=== PATIENT | female | born 1975 | race Caucasian/White ===

== ENCOUNTER 2017-01-28 04:09 | Emergency (ER) | payer BC ==
[~2017-01-28] VITALS: Ht 165.1 cm; Wt 95.8 kg
[2017-01-28 04:14] VITALS: TEMP 36.8; Ht 165.1 cm; Wt 95.8 kg
[2017-01-28 04:41] LABS: BASO % 0.5 %; BASO ABS # 0.04 K/uL (0-0.2); COMPLETE YES; EOS % 2.1 %; HEMATOCRIT 34.6 % (37-47); IG% 0.2 %; LYMPH % 42.4 %; LYMPH ABS # 3.51 K/uL (1.2-3.4); MEAN CELL VOLUME 86.5 fL (80-100); MEAN CORPUSCULAR HEMOGLOBIN 28.8 pg (25-34); MEAN CORPUSCULAR HGB CONC 33.2 g/dl (32-36); MEAN PLATELET VOLUME 9.2 fL (7.4-10.4); MONO % 6.8 %; PLATELET COUNT 361 K/uL (130-400); WHITE BLOOD COUNT 8.27 K/uL (4.8-10.8)
[2017-01-28 05:00] LABS: BUN/CREATININE RATIO 27.7 (10-20); CALCIUM 8.1 mg/dl (8.5-10.1); CREATININE 0.62 mg/dl (0.60-1.20); POTASSIUM 3.6 mmol/L (3.5-5.1)
[2017-01-28 05:03] LABS: ALB/GLOB RATIO 0.9 (0.9-2)
[2017-01-28 05:06] VITALS: O2SAT 97
[2017-01-28 05:49] LABS: PREG INTERNAL NEGATIVE QC NEG CLEAR BACKGROUND; PREG INTERNAL POSITIVE QC POS CONTROL LINE
--- NOTE | 2017-01-28 06:08 | EMERGENCY ROOM VISIT NOTE ---
History First contact with patient: 04:19 Chief Complaint: LEG PAIN,LEG INJURY Stated Complaint: LEFT LEG PAIN/BURNING History of Present Illness The patient is a 41 year old female who presents to the Emergency Room with complaints of left calf pain and discomfort for the past few days described As aching, ranging in severity 6 out of 10 is worse with palpation and better with rest. It does not radiate. No history of DVT or PE. Patient does not smoke. No control and no recent travel. No family history of blood clots. Patient has had sciatica before but this feels different. Patient denies chest pain, dyspnea, numbness, tingling, fever, chills. No injury to the area. Patient has been doing a lot of walking. Review of Systems See HPI for pertinent positives & negatives. A total of 10 systems reviewed and were otherwise negative. Past Medical/Surgical History none Social History Smoking Status: Never Smoker Current/Historical Medications No Active Prescriptions or Reported Meds Physical Exam Vital Signs Date Time Temp Pulse Resp B/P (MAP) Pulse Ox O2 Delivery O2 Flow Rate FiO2 01/28/17 05:08 90 01/28/17 05:06 90 16 161/104 96 Room Air 01/28/17 05:06 97 Room Air 01/28/17 04:14 36.8 90 20 168/91 98 Room Air Physical Exam VITALS: Vitals are noted on the nurse's note and reviewed by myself. Vital signs hypertensive GENERAL: Pleasant female, in no acute distress, nondiaphoretic, well-developed well-nourished. SKIN: Capillary reflex less than 2 seconds. HEENT: Normocephalic. PERRLA. EOMI. Nares patent. Mucous membranes moist. Neck is supple without nuchal rigidity. HEART: Regular rate and rhythm without murmurs gallops or rubs. LUNGS: Clear to auscultation bilaterally without wheezes, rales or rhonchi. No retractions or accessory muscle use. ABDOMEN: Positive bowel sounds x 4. Normal tympanic percussion. Soft, nontender, without masses or organomegaly. Gonzalez sign negative. No guarding or rebound tenderness. MUSCULOSKELETAL: No gross musculoskeletal defects. No pedal edema. Left calf tenderness. NEURO: Patient was alert and oriented to person place and time. Normal sensation to light and sharp touch. No focal neurological deficits. Medical Decision & Procedures Laboratory Results 01/28/17 04:35 Red Blood Count 4.00, Mean Corpuscular Volume 86.5, Mean Corpuscular Hemoglobin 28.8, Mean Corpuscular Hemoglobin Concent 33.2, Mean Platelet Volume 9.2, Neutrophils (%) (Auto) 48.0, Lymphocytes (%) (Auto) 42.4, Monocytes (%) (Auto) 6.8, Eosinophils (%) (Auto) 2.1, Basophils (%) (Auto) 0.5, Neutrophils # (Auto) 3.97, Lymphocytes # (Auto) 3.51, Monocytes # (Auto) 0.56, Eosinophils # (Auto) 0.17, Basophils # (Auto) 0.04 01/28/17 04:35 Test 01/28/17 04:35 White Blood Count 8.27 K/uL (4.8-10.8) Red Blood Count 4.00 M/uL (4.2-5.4) Hemoglobin 11.5 g/dL (12.0-16.0) Hematocrit 34.6 % (37-47) Mean Corpuscular Volume 86.5 fL (80-100) Mean Corpuscular Hemoglobin 28.8 pg (25-34) Mean Corpuscular Hemoglobin Concent 33.2 g/dl (32-36) Platelet Count 361 K/uL (130-400) Mean Platelet Volume 9.2 fL (7.4-10.4) Neutrophils (%) (Auto) 48.0 % Lymphocytes (%) (Auto) 42.4 % Monocytes (%) (Auto) 6.8 % Eosinophils (%) (Auto) 2.1 % Basophils (%) (Auto) 0.5 % Neutrophils # (Auto) 3.97 K/uL (1.4-6.5) Lymphocytes # (Auto) 3.51 K/uL (1.2-3.4) Monocytes # (Auto) 0.56 K/uL (0.11-0.59) Eosinophils # (Auto) 0.17 K/uL (0-0.5) Basophils # (Auto) 0.04 K/uL (0-0.2) RDW Standard Deviation 43.9 fL (36.4-46.3) RDW Coefficient of Variation 13.9 % (11.5-14.5) Immature Granulocyte % (Auto) 0.2 % Immature Granulocyte # (Auto) 0.02 K/uL (0.00-0.02) Anion Gap 5.0 mmol/L (3-11) Est Creatinine Clear Calc Drug Dose 139.5 ml/min Estimated GFR () 131.6 Estimated GFR (Non- 113.6 BUN/Creatinine Ratio 27.7 (10-20) Calcium Level 8.1 mg/dl (8.5-10.1) Total Bilirubin 0.2 mg/dl (0.2-1) Aspartate Amino Transf (AST/SGOT) 13 U/L (15-37) Alanine Aminotransferase (ALT/SGPT) 21 U/L (12-78) Alkaline Phosphatase 71 U/L (45-117) Total Creatine Kinase 70 U/L (26-192) Total Protein 7.1 gm/dl (6.4-8.2) Albumin 3.4 gm/dl (3.4-5.0) Globulin 3.7 gm/dl (2.5-4.0) Albumin/Globulin Ratio 0.9 (0.9-2) Human Chorionic Gonadotropin, Qual NEG (NEG) ED Course Prior records reviewed and summarized above. Triage Nursing notes reviewed. The patient's history was concerning for swelling and pain in the leg. Differential diagnosis: Etiologies such as DVT, musculoskeletal, infection, joint effusion, trauma, lymphedema, idiopathic, CHF, as well as others were entertained.. Physical examination: The physical examination revealed no signs of infection. Neurovascularly intact. ER treatment provided: Patient was observed On reassessment the patient felt better. Diagnostics interpreted by me: The labs revealed mild anemia Imaging studies: US neg for DVT This appears to be consistent with left calf pain. Patient was neurovascularly and neurologically intact. She is well-appearing. She is advised to stretch the area out and to follow-up with family care in a few days or here in the ER sooner for severe pain, numbness, tingling, chest pain, worsening signs or symptoms or as needed. By the evaluation outlined above emergent etiologies such as DVT, septic joint, trauma, infection, CHF, as well as others were deemed relatively unlikely. The pt informed about the findings as listed above. All questions were answered and pleased with the treatment. Return instructions were outlined and the patient was discharged in stable condition. Referral: The patient was referred back to their primary care physician for follow-up in 2 to 3 days for a recheck of the current condition. Medical Decision As above Medication Reconcilliation Current Medication List: was personally reviewed by me Blood Pressure Screening Patient's blood pressure: Elevated blood pressure Blood pressure disposition: Referred to PCP Impression Primary Impression: Pain of left calf Departure Information Dispostion Home / Self-Care Condition GOOD Prescriptions No Active Prescriptions or Reported Meds Referrals Nury Mendez C.R.N.PKobe (PCP) Patient Instructions My [facility] Additional Instructions Ibuprofen(Motrin, Advil) may be used for fever or pain. Use 600mg every six hours as needed. Take with food. Avoid using more than 2400mg in a 24 hour period. Do not use 2400mg per day for more than three consecutive days without physician direction. Prolonged inappropriate use can lead to stomach upset or ulcers. (AND/OR) Acetaminophen(Tylenol) may be used for fever or pain. Use 1000mg every six hours as needed. Avoid using more than 3000mg in a 24 hour period. Rest and drink plenty of fluids as tolerated. Continue current medications. Avoid strenuous activities and anything that worsens your pain. Resume normal activities once your symptoms resolve. Stretch the area out. Return to the ER immediately for worsening or persistent calf pain, abdominal pain, vomiting, fevers, chest pains, difficulty breathing, worsening of your condition, or as needed. Follow up with your primary physician in 2-3 days for a recheck of your current condition.
[2017-01-28 06:28] VITALS: BP 141/83; PULSE 78; O2SAT 96
--- NOTE | 2017-01-28 06:30 | DIAGNOSTIC IMAGING REPORT ---
ULTRASOUND VENOUS DOPPLER ULTRASOUND LEFT LOWER EXTREMITY CLINICAL HISTORY: Left leg pain and swelling COMPARISON STUDY: None FINDINGS: Real-time and color flow Doppler imaging were performed. Flow was seen within the femoral, popliteal and calf veins with no intraluminal thrombus demonstrated. The saphenous vein is patent. IMPRESSION: No evidence of left lower extremity DVT. Electronically signed by: Michael Maynard M.D. 01/28/2017 6:29 AM Dictated Date/Time: 01/28/2017 6:28 AM
== END 2017-01-28 06:29 | disposition home or self-care (01) ==
LOC: C.EDB 04:10
DX: M79.662 Pain in left lower leg (principal); R03.0 Elevated blood-pressure reading, without diagnosis of hypertension

== ENCOUNTER → 2017-02-06 | Outpatient (CLI) | payer BC ==
[~2017-02-06] MED LIST: VNTHFA/IN INH
--- NOTE | 2017-02-06 10:53 | DIAGNOSTIC IMAGING REPORT ---
MRI OF THE LUMBAR SPINE WITHOUT CONTRAST CLINICAL HISTORY: Left leg pain. Toe weakness. COMPARISON STUDY: Lumbar spine radiographs November 30, 2008. TECHNIQUE: Utilizing a 1.5 Malena magnet and dedicated coil, multiplanar, multiecho imaging of the lumbar spine was performed without IV contrast. FINDINGS: For purposes of numbering on this exam, the L5-S1 disc space is assigned to axial image 27 of 30. Alignment of the lumbar spine is anatomic. Vertebral body heights are maintained. There is no marrow replacement. There is no intracanalicular mass or fluid collection. Discogenic changes at the L4-L5 level are noted. Conus terminates at the upper L1 level. Paravertebral soft tissues are unremarkable. L1-2: The central canal and the neural foramen are patent. L2-3: The central canal and the neural foramen are patent. L3-4: There is mild disc bulge with ligamentous hypertrophy and facet arthrosis. There is mild narrowing of the central canal and lateral recesses. The neural foramen are patent. L4-5: There is disc space noted with a disc bulge and a superimposed central/left paracentral disc protrusion that results in moderate narrowing of the left lateral recess. The neural foramen are patent. There is mild narrowing of the central canal. L5-S1: There is mild disc bulge with a tiny central disc protrusion. Central canal and neural foramen are patent. IMPRESSION: 1. Disc bulge with superimposed central/left paracentral disc protrusion at L4-L5 that results in moderate narrowing of the left lateral recess. This could be correlated with left L5 radiculopathy. 2. Mild multilevel central canal stenosis, as described above. Electronically signed by: Walter Ferrari M.D. 02/06/2017 10:51 AM Dictated Date/Time: 02/06/2017 10:46 AM
== END | disposition home or self-care (01) ==
PROVIDERS: ATTEND Family Medicine
DX: M51.16 Intervertebral disc disorders with radiculopathy, lumbar region (principal)

== ENCOUNTER → 2017-04-23 | Day surgery (SDC) | payer OTHER ==
[2017-03-12 13:58] VITALS: Ht 165.1 cm; Wt 90.9 kg
[~2017-04-23] VITALS: Ht 165.1 cm; Wt 90.9 kg
== END | disposition home or self-care (01) ==
LOC: EDSTATUS 14:45 → C.PAT 16:06
PROVIDERS: ATTEND Physical Medicine & Rehabilitation
DX: M54.16 Radiculopathy, lumbar region (principal); Z53.9 Procedure and treatment not carried out, unspecified reason